=== PATIENT | male | born 2000 | race Caucasian/White ===

== ENCOUNTER 2021-01-03 07:32 | Emergency (ER) | payer OTHER ==
[~2021-01-03] VITALS: Ht 188 cm; Wt 86.2 kg
[2021-01-03 07:56] LABS: BASOPHILS ABSOLUTE AUTO 0.03 K/mm3 (0.00-0.23); BASOPHILS PERCENT AUTO 0 % (0-2); EOSINOPHILS ABSOLUTE AUTO 0.17 K/mm3 (0.00-0.68); EOSINOPHILS PERCENT AUTO 2 % (0-6); Hematocrit 44.8 % (37.0-53.0); Hemoglobin 15.6 g/dL (13.5-17.5); IMMATURE GRAN ABSOLUTE AUTO 0.05 K/mm3 (0.00-0.10); IMMATURE GRAN PERCENT AUTO 1 % (0-1); LYMPHOCYTES ABSOLUTE AUTO 2.26 K/mm3 (0.84-5.20); LYMPHOCYTES PERCENT AUTO 27 % (21-46); MONOCYTES ABSOLUTE AUTO 0.64 K/mm3 (0.16-1.47); MONOCYTES PERCENT AUTO 8 % (4-13); Mean Corpuscular HGB 31.3 pg (26.0-34.0); Mean Corpuscular HGB Conc 34.8 g/dL (31.5-36.5); Mean Corpuscular Volume 90 fL (80-100); Mean Platelet Volume 10.5 fL (9.1-12.4); NEUTROPHILS ABSOLUTE AUTO 5.27 K/mm3 (1.96-9.15); NEUTROPHILS PERCENT AUTO 63 % (41-73); Platelet Count 155 K/mm3 (150-400); RDW Coefficient Variation 12.2 % (11.7-14.2); RDW Standard Deviation 39.8 fL (35.1-46.3); Red Blood Cell Count 4.98 M/mm3 (4.30-5.90); White Blood Cell Count 8.42 K/mm3 (4.00-11.30)
[2021-01-03 08:26] LABS: Alanine Aminotransfer (ALT/SGP 38 U/L (12-78); Albumin, Blood 4.1 g/dL (3.4-5.0); Albumin/Globulin Ratio 1.1 (0.8-1.8); Alk Phos 86 U/L (58-237); Anion Gap 7 mmol/L (6-16); Aspartate Aminotrans (AST/SGOT 54 U/L (12-37); Bilirubin, Total 0.5 mg/dL (0.1-1.0); Blood Urea Nitrogen 13 mg/dL (8-21); CO2, Blood 24 mmol/L (21-32); Calcium, Blood 8.8 mg/dL (8.5-10.1); Chloride, Blood 106 mmol/L (98-108); Creatinine, Blood 0.72 mg/dL (0.60-1.20); Globulin, Blood 3.8 g/dL (2.2-4.0); Glomerular Filtration Rate >60 (60-); Glucose, Blood 91 mg/dL (70-99); Potassium, Blood 5.9 mmol/L (3.5-5.5); Sodium, Blood 137 mmol/L (136-145); Total Protein, Blood 7.9 g/dL (6.4-8.2)
[2021-01-03] MEDS ORDERED: HYDACE10B PO (08:43)
== END 2021-01-03 09:22 | disposition home or self-care (01) ==
LOC: EDBD 07:32 → ER 07:32
PROVIDERS: Emergency Medicine
DX: S42.112A Displaced fracture of body of scapula, left shoulder, initial encounter for closed fracture (principal); S42.022A Displaced fracture of shaft of left clavicle, initial encounter for closed fracture; S01.112A Laceration without foreign body of left eyelid and periocular area, initial encounter; S00.03XA Contusion of scalp, initial encounter; V59.9XXA Occupant (driver) (passenger) of pick-up truck or van injured in unspecified traffic accident, initial encounter
CPT/HCPCS: 12013; 29105; 70450; 71045; 71260; 72125; 74177; 80053; 85025; 93005; 93010; 99285-25; A9270; Q9967

== ENCOUNTER 2021-01-11 14:53 | Day surgery (SDC) | payer OTHER ==
[~2021-01-11] VITALS: Ht 188 cm; Wt 89.0 kg
[~2021-01-11 14:53] MED LIST: HYDACE10B PO
--- NOTE | 2021-01-11 16:36 | NUR ---
Pt case canceled by Dr. Moreira, pt upset and wanting to rip own iv out Franky RN dcd iv pt was explained the reason for canceling pt understood but was not happy. pt dcd home Dr. Moreira will call pt to reschedule
== END 2021-01-11 22:51 | disposition home or self-care (01) ==
LOC: ORSCMMR 14:53
DX: S42.002A Fracture of unspecified part of left clavicle, initial encounter for closed fracture (principal); Z53.9 Procedure and treatment not carried out, unspecified reason
CPT/HCPCS: J0690; J1100; J1885; J2405; J2704; J3010; J7120

== ENCOUNTER 2021-01-13 09:42 | Day surgery (SDC) | payer OTHER ==
[~2021-01-13] VITALS: Ht 188 cm; Wt 89.9 kg
--- NOTE | 2021-01-13 11:52 | NUR ---
01/13/21 1152 Vaibhav Avilez BUPIVACAINE 0.5% 50 ML BOTTLE MIXED WITH EPI 0.25 ML PER ORDER BY RN TO MAKE BUPIVACAINE 0.5% 1:200,000. MULIT DOSE VIAL, MIXED, VERIFIED, & DIVIDED IN OR BY RN.
== END 2021-01-13 14:50 | disposition home or self-care (01) ==
LOC: ORSCSDS 09:42 → ORD 01-14 12:30
PROVIDERS: Orthopaedic Surgery
PROC: 0PSB04Z Reposition Left Clavicle with Internal Fixation Device, Open Approach (ICD-10-PCS; principal; 2021-01-13 11:00)
DX: S42.002A Fracture of unspecified part of left clavicle, initial encounter for closed fracture (principal); F17.210 Nicotine dependence, cigarettes, uncomplicated
CPT/HCPCS: A9270; C1713; J0690; J1100; J2250; J2405; J2704; J2710; J3010; J7120

== ENCOUNTER 2022-01-01 16:22 | Emergency (ER) | payer OTHER ==
[~2022-01-01] VITALS: Ht 188 cm; Wt 84.8 kg
[2022-01-01] MEDS ORDERED: HYDR1TAB94 PO (19:24)
== END 2022-01-01 19:41 | disposition home or self-care (01) ==
LOC: ER 16:22
DX: S92.322A Displaced fracture of second metatarsal bone, left foot, initial encounter for closed fracture (principal); S92.332A Displaced fracture of third metatarsal bone, left foot, initial encounter for closed fracture; S92.342A Displaced fracture of fourth metatarsal bone, left foot, initial encounter for closed fracture; W20.8XXA Other cause of strike by thrown, projected or falling object, initial encounter; F17.200 Nicotine dependence, unspecified, uncomplicated
CPT/HCPCS: 73630

== ENCOUNTER → 2024-08-21 | Outpatient (CLI) | payer OTHER ==
[~2024-08-21] MED LIST changes: +HYDR1TAB94 PO
[2024-08-21 17:34] LABS: BASOPHILS ABSOLUTE AUTO 0.03 K/mm3 (0.00-0.23); BASOPHILS PERCENT AUTO 0 % (0-2); EOSINOPHILS ABSOLUTE AUTO 0.16 K/mm3 (0.00-0.68); EOSINOPHILS PERCENT AUTO 2 % (0-6); Hematocrit 42.6 % (37.0-53.0); Hemoglobin 15.2 g/dL (13.5-17.5); IMMATURE GRAN ABSOLUTE AUTO 0.01 K/mm3 (0.00-0.10); IMMATURE GRAN PERCENT AUTO 0 % (0-1); LYMPHOCYTES ABSOLUTE AUTO 1.67 K/mm3 (0.84-5.20); LYMPHOCYTES PERCENT AUTO 22 % (21-46); MONOCYTES ABSOLUTE AUTO 0.51 K/mm3 (0.16-1.47); MONOCYTES PERCENT AUTO 7 % (4-13); Mean Corpuscular HGB Conc 35.7 g/dL (31.5-36.5); Mean Corpuscular Volume 90 fL (80-100); NEUTROPHILS ABSOLUTE AUTO 5.24 K/mm3 (1.96-9.15); NEUTROPHILS PERCENT AUTO 69 % (41-73); NRBC ABSOLUTE 0.00 K/mm3 (0.00-0.02); NRBC Auto 0.0 /100 WBC (0.0-0.2); Platelet Count 217 K/mm3 (150-400); RDW Coefficient Variation 11.7 % (11.7-14.2); RDW Standard Deviation 37.7 fL (35.1-46.3)
[2024-08-21 17:55] LABS: Alanine Aminotransfer (ALT/SGP 31.0 U/L (12-78); Albumin, Blood 4.6 g/dL (3.4-5.0); Albumin/Globulin Ratio 1.4 (0.8-1.8); Anion Gap 13.0 mmol/L (3-11); Aspartate Aminotrans (AST/SGOT 22.0 U/L (12-37); Bilirubin, Total 0.7 mg/dL (0.1-1.0); Blood Urea Nitrogen 13.0 mg/dL (8-24); CO2, Blood 29.0 mmol/L (21-32); Calcium, Blood 9.6 mg/dL (8.5-10.1); Chloride, Blood 102.0 mmol/L (98-108); Creatinine, Blood 1.02 mg/dL (0.60-1.20); Globulin, Blood 3.4 g/dL (2.2-4.0); Glucose, Blood 106.0 mg/dL (70-99); Potassium, Blood 3.5 mmol/L (3.5-5.5); Sodium, Blood 140.0 mmol/L (136-145); Thyroid Stimulating Hormone 0.662 uIU/mL (0.360-4.800); Total Protein, Blood 8.0 g/dL (6.4-8.2)
== END | disposition home or self-care (01) ==
LOC: LAB SHORT 17:31 → LAB 17:31
PROVIDERS: Physician Assistant Medical
DX: R00.2 Palpitations (principal)
CPT/HCPCS: 80053; 84443; 85025